=== PATIENT | female | born 1995 | race Caucasian/White ===

== ENCOUNTER 2016-10-09 23:34 | Emergency (ER) | payer SELFPAY ==
[~2016-10-09] VITALS: Ht 167.6 cm; Wt 61.2 kg
[2016-10-09 23:47] VITALS: BP 120/69
[2016-10-10] MEDS ORDERED: ACETAMINOPHEN EXTRA STRENGTH 500 MG TAB ONE (00:03)
--- NOTE | 2016-10-10 02:00 | NUR ---
PATIENT LEFT WITHOUT BEING SEEN BY DR. LOZADA. NO FURTHER CARE PROVIDED FOR PATIENT.
== END 2016-10-10 02:00 | disposition left against medical advice (07) ==
LOC: MED 23:48
DX: R50.9 Fever, unspecified (principal); Z53.21 Procedure and treatment not carried out due to patient leaving prior to being seen by health care provider

== ENCOUNTER 2018-04-04 17:13 | Emergency (ER) | payer SELFPAY ==
[~2018-04-04] VITALS: Ht 167.6 cm; Wt 54.4 kg
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
[2018-04-04] MEDS ORDERED: KETOROLAC 60 MG/2 ML VIAL IM ONE (22:05)
--- NOTE | 2018-04-04 23:19 | NUR ---
PT RETURN FROM XRAY
[2018-04-04 23:43] VITALS: BP 124/67
== END 2018-04-04 23:45 | disposition home or self-care (01) ==
LOC: MED 17:13
DX: S16.1XXA Strain of muscle, fascia and tendon at neck level, initial encounter (principal); S76.911A Strain of unspecified muscles, fascia and tendons at thigh level, right thigh, initial encounter; V43.52XA Car driver injured in collision with other type car in traffic accident, initial encounter; Y93.89 Activity, other specified; Y92.410 Unspecified street and highway as the place of occurrence of the external cause; Y99.8 Other external cause status
CPT/HCPCS: 72040; 73552; 81025; 96372; 99283; J1885